=== PATIENT | female | born 1935 | race Caucasian/White ===

== ENCOUNTER 2017-02-17 13:14 | Outpatient (CLI) | payer MEDICARE, BC | END 2017-02-17 13:15 | disposition home or self-care (01) | LOC: BICRAD 13:14 | PROVIDERS: ATTEND Internal Medicine | DX: R07.9 Chest pain, unspecified (principal); I70.0 Atherosclerosis of aorta; I77.819 Aortic ectasia, unspecified site; Z90.11 Acquired absence of right breast and nipple | CPT/HCPCS: 36415; 71020; 80048 ==

== ENCOUNTER 2017-05-26 10:54 | Outpatient (CLI) | payer MEDICARE, BC | END 2017-05-26 10:55 | disposition home or self-care (01) | LOC: BICMAMMO 10:54 | PROVIDERS: ATTEND Internal Medicine | DX: Z12.31 Encounter for screening mammogram for malignant neoplasm of breast; Z85.3 Personal history of malignant neoplasm of breast | CPT/HCPCS: 77063; 77067 ==

== ENCOUNTER 2017-06-14 17:39 | Observation (INO) | payer MEDICARE, BC ==
[2017-06-14 19:11] LABS: #Eosinphils 0.1 thou/uL (0.0-0.7); #Lymphocytes 1.1 thou/uL (1.20-3.40); #Monocytes 0.8 thou/uL (0.11-0.59); #Neutrophils 6.1 thou/uL (1.40-6.50); %Basophils 0.1 % (0.0-1.0); %Eosinophils 1.2 % (0.0-10.0); %Lymphocytes 13.6 % (21.0-51.0); %Monocytes 9.6 % (0.0-10.0); %Neutrophils 75.4 % (42.0-75.0); Hemoglobin 12.9 g/dL (12.0-16.0); Mean Corpuscular HGB CONC 32.9 g/dL (32.0-36.0); Mean Corpuscular Hemoglobin 31.7 pg (27.0-31.0); Mean Corpuscular Volume 96.5 fl (81.0-99.0); Mean Platelet Volume 7.5 fL (7.4-10.4); Platelet Count 177 thou/uL (130-400); RBC Distribution Width 11.9 % (11.5-14.5); Red Blood Cell (RBC) Count 4.08 mill/uL (4.20-5.40)
[2017-06-14 19:34] LABS: ALT (SGPT) 8 U/L (8-55); AST (SGOT) 13 U/L (5-34); Albumin 3.5 g/dL (3.4-4.8); Alkaline Phosphatase 85 U/L (40-150); Anion Gap 13 mmol/L (10-20); BUN (Urea Nitrogen) 17 mg/dL (9.8-20.1); Bilirubin, Total 0.5 mg/dL (0.2-1.2); Calc. Creatinine Clearance 0 mL/min (70-130); Calcium 8.5 mg/dL (7.8-10.44); Carbon Dioxide 25 mmol/L (23-31); Chloride 100 mmol/L (98-107); Estimated GFR-MDRD 45; Globulin 2.6 g/dL (2.4-3.5); Glucose 93 mg/dL (83-110); Lipase 26 U/L (8-78); Potassium 4.2 mmol/L (3.5-5.1); Protein, Total 6.1 g/dL (6.0-8.3); Sodium 134 mmol/L (136-145)
[2017-06-14 21:09] LABS: Bilirubin Negative (Negative); Blood, Urine Negative (Negative); Clarity CLEAR (Clear); Glucose, Urine (Dipstick) Negative (Negative); Leukocyte Trace (Negative); Nitrite Negative (Negative); Protein, Urine (Dipstick) Negative (Neg-Trace); Specific Gravity, Urine 1.006 (1.002-1.036); Urobilinogen 0.2 mg/dL (0.2-1.0); pH, Urine 5.5 (5.0-9.0)
[2017-06-14 21:22] LABS: RBC/HPF 0-3 HPF (0-3); Squamous Epithelial 0-3 HPF (0-3); WBC/HPF 0-3 HPF (0-3)
[2017-06-14 21:23] LABS: Bacteria/HPF None Seen HPF (None Seen); Hyaline Casts/LPF NONE SEEN LPF (0-3 Hyaline)
[2017-06-14] MEDS ORDERED: Ondansetron HCl/PF 4 MG/2 ML Vial IVP PRN (21:27)
[2017-06-14] MEDS ORDERED: Ondansetron ODT 4 MG TAB SL PRN (21:27)
[2017-06-14 21:50] VITALS: BMI 17.6
[2017-06-15] MEDS ORDERED: Ondansetron ODT 4 MG TAB PO PRN (04:15)
[2017-06-15] MEDS ORDERED: Ondansetron HCl/PF 4 MG/2 ML Vial IVP PRN (04:15)
[2017-06-15] MEDS ORDERED: hydrALAZINE 20 MG/ML VIAL SLOW IVP PRN (04:16)
--- NOTE | 2017-06-15 04:59 | HP ---
PRIMARY CARE PHYSICIAN: Dr. April Humphreys. CHIEF COMPLAINT: Diarrhea. HISTORY OF PRESENT ILLNESS: Ms. Escobar is a pleasant 81-year-old female who has a history of hyperte nsion, elevated cholesterol, and breast cancer. She also has a history of irritable bowel syndrome w ith diarrhea. She was in her usual state of health until this past Tuesday. She says that around midnight, she began having severe watery diarrhea. She says that it was really dark and black colore d as well. She says this going on all night long. She denied having any abdominal pain, however, an d also denied any nausea or vomiting. No fever or chills, but she says that on Tuesday, it seemed t o slow down. She says that she has a tendency to have diarrhea anyway, so she tried eating a BRAT di et and says that it started to slow up some; then on Tuesday, it started to clear up. Then the , she said she ate a chicken pot pie and says that it started all over again. This is the r eamon that she came to the ER for evaluation. The patient says it seems as if diarrhea does, is not really related to eating, but it does seem to get worse after eating by her description. She also sa ys that she has tried taking FiberCon, vitamin C, Imodium, and other ldui-caj-hditelk medications wit hout much relief; however, since she has been in the hospital, in the emergency room and on the floor , her diarrhea has slowed significantly and it is noted that she is currently n.p.o. REVIEW OF SYSTEMS: Constitutional: No fevers, chills, no night sweats, no weight loss. HEENT: No headaches, no dizziness, no visual changes, no sore throat, rhinorrhea, neck pain, no adenopathy. Pu lmonary: No hemoptysis, no cough, no wheezing. Cardiovascular: She denies any chest pain, no short ness of breath, no PND, no orthopnea. Gastrointestinal: As the history of present illness. Genitou rinary: No urinary frequency, hematuria, no hesitancy. Neurologic: No focal weakness, numbness, no seizures. Psychiatric: No symptoms of anxiety or depression. Skin and Integument: No skin change s. No rash. PAST MEDICAL HISTORY: Hypertension, hypercholesterolemia, breast cancer which was estrogen and proge sterone receptor positive and a T2 N1 M0, stage 2 basal cell carcinoma, irritable bowel syndrome with diarrhea, diverticulosis and what sounds like a thyroglossal cyst. PAST SURGICAL HISTORY: She has had a right mastectomy and reconstructive saline implant, knee surger y, total abdominal hysterectomy and bilateral salpingo-oophorectomy, left wrist surgery, right rotato r cuff tear surgery, , bilateral cataract surgery, appendectomy, 3 foot surgeries as well as a throat surgery. ALLERGIES: No known drug allergies. SOCIAL HISTORY: She is . She is a nonsmoker, nondrinker. FAMILY HISTORY: Significant for Parkinson disease, coronary artery disease, breast cancer, these are in her mother. Her father had coronary artery disease and a sister had multiple myeloma. CURRENT MEDICATIONS: Include Xanax 0.25 mg q.8, aspirin 325 mg daily, Plavix 75 mg daily, digoxin 0. 125 mg daily, Nexium 40 mg daily, estradiol vaginal cream, Flonase nasal spray twice a day, Lasix 40 mg daily, Osteo Bi-Flex once a day, glucosamine daily, isosorbide mononitrate 60 mg extended release daily, Toprol-XL 100 mg daily, Nitrostat 0.4 sublingual p.r.n., Systane eyedrops, simvastatin 20 mg a t bedtime, valsartan 40 mg twice a day, Catapres patch 0.3 q.7 days, hydralazine 50 at bedtime, and v alacyclovir 500 mg daily. PHYSICAL EXAMINATION: GENERAL: She is alert and oriented. She appears to be in no acute distress. VITAL SIGNS: Blood pressure was 120/54, heart rate 73, respiratory rate of 18, temperature is 97.9. HEENT: Her pupils are equal, round, and reactive. Extraocular muscles are intact. Her sclerae are anicteric. Throat: No erythema, no exudates. NECK: No adenopathy, no bruits. LUNGS: Clear. No wheezing, no rales. CARDIOVASCULAR: She has a normal S1, S2. There is no S3 or S4. No murmurs, clicks, or rubs. ABDOMEN: Soft, it is nontender, nondistended. Positive for bowel sounds. No rebound, no guarding. EXTREMITIES: There is no edema. NEUROLOGICALLY: The exam is nonfocal. She is moving all extremities. Muscle strength is 5/5 in bot h upper and lower extremities. LABORATORY RESULTS: White blood cell count 8.0, hemoglobin 12.9, hematocrit 39.4, platelet count 177 ,000. Sodium 134, potassium 4.2, chloride is 100, CO2 is 25, BUN of 17, creatinine 1.15, glucose is 93. ASSESSMENT AND PLAN: This is an 81-year-old female who has a history of chronic diarrhea off and on attributable to irritable bowel syndrome, but has had an increase in the volume and amount of diarrhe a just recently. She will be placed in observation. We will leave her n.p.o. and start her on IV fl uids. Get stool studies including Clostridium difficile and stool for ova and parasites as well as a lactoferrin and consult GI for further recommendations. Hypertensions and the patient will be n.p.o . We will place her on p.r.n. medications as needed. Since there is some question of bleeding and d ark stools and guaiac positive stools. We will hold off on Lovenox for DVT prophylaxis and place her on SCDs only and we will also place her on a proton-pump inhibitor.
[2017-06-15] MEDS: Sodium Chloride 0.9% 1,000 ML IV SCH ×2 (05:11→16:12)
[2017-06-15] MEDS: Pantoprazole 40 MG VIAL IVP SCH (09:03)
[2017-06-15] MEDS ORDERED: Dextrose 50% Abboject 50 ML SYRINGE ONE (11:31)
[2017-06-15 12:39] LABS: Hemoglobin 12.4 g/dL (12.0-16.0)
[2017-06-15 12:59] LABS: Glucose Accucheck Confirmation 187 mg/dl (83-110)
[2017-06-15 16:43] LABS: Magnesium 1.6 mg/dL (1.6-2.6); Phosphorus 3.2 mg/dL (2.3-4.7)
[2017-06-15] MEDS ORDERED: GoLYTELY 4,000 ml Bottle PO SCH (17:00)
--- NOTE | 2017-06-15 20:57 | CON ---
DATE OF CONSULTATION: 06/15/2017 REASON FOR CONSULTATION: Ms. Escobar is an 81-year-old female who was admitted to the hospital for re current episodes of diarrhea, heme-positive stool. HISTORY OF PRESENT ILLNESS: Ms. Escobar is a pleasant 81-year-old who recently went to the emergency room on the and then again on the . She went in she states because she has had diarrhea sta rting last week on , which is about 6 days, it was very watery and dark in color. She has be en trying fiber, Kaopectate, and Imodium. She had some problems with IBS in the past. She was not i mproving, went to the emergency room in [place], because she was having some vision problems and was very sedate. That improved, and in the emergency room in [place], she was given fluids and she lissy t home and had further diarrhea. Ultimately, she went and saw her PCP and then actually came back to the emergency room here at [place]. The decision was made to get her admitted to the hospital. The patient notes she would go up to 10 times a day, it was watery and black colored. She had no vom iting, cramping, fever, or chills. She denied eating anything out of the ordinary. Denied recent an tibiotics. Denied any sick contacts. She has had problems with diarrhea in the past, and was told s he had irritable bowel. At one point in time, she was on Benicar and this was stopped. It was felt it was possibly the cause of diarrhea. Presently, she has had no diarrhea since admission, but had s tool x2 Hemoccult positive. PAST MEDICAL HISTORY: Hypertension, hyperlipidemia, breast cancer, stage II basal carcinoma, IBS, di verticulosis, thyroglossal cyst in the past. PAST SURGICAL HISTORY: Mastectomy reconstructive with saline implant, knee surgery, total abdominal hysterectomy, bilateral salpingo-oophorectomy, right rotator cuff repair, . She has had EGD and colonoscopy for diarrhea back in 2006. She had no polyps removed. Random biopsies of the colon were normal. It does not seem that biopsies were taken for celiac at that time. There was some not ation in the chart that celiac blood testing was done and that was negative, but I could not find david t. SOCIAL HISTORY: She is . Her is at bedside, as is her granddaughter and daughter-in- law. FAMILY HISTORY: Negative for diarrhea or bowel disease. MEDICATIONS AT HOME: Xanax, aspirin, Plavix, digoxin, Nexium, estradiol, Flonase, Osteo Bi-Flex, iso sorbide mononitrate, Toprol, Nitrostat, Singulair, losartan, Catapres, hydrochlorothiazide, valacyclo vir. PRESENT MEDICATIONS: Zofran p.r.n., Protonix, normal saline at 100, and Apresoline. PHYSICAL EXAMINATION: GENERAL: She is resting comfortably in bed. She is thin and frail, but awake, oriented, and bright. VITAL SIGNS: Temperature is 97, pulse 65, blood pressure 119/56. HEENT: Oropharynx is without lesions, is moist. LUNGS: Clear. HEART: Regular rate and rhythm without clicks or murmurs. ABDOMEN: Soft and nontender without rebound or guarding. RECTAL: Reveals some pretty much empty vault, but little bit of formed stool. There was brown stool though. There was no black stool or melena. LABORATORY STUDIES: Hemoglobin was 14 on admission, 12.4 now. White count was 5.8, it is [address] atelet counts 117. INR is 1. Comprehensive metabolic profile was normal. BUN and creatinine 19 and 1.77, now 17 and 1.15. Magnesium was not checked. Phosphorus was not checked. Liver function test is normal. Albumin normal. TSH normal. Digoxin is 0.66. Microbiology: Stool occult blood positi ve x2. Pending stool includes Campylobacter, C. difficile, lactoferrin, ova and parasite. She is on H&Hs q.6 hours. ASSESSMENT: 1. Heme-positive stool. There does not appear to be any acute gastrointestinal bleeding. She has b rown stool on rectal examination. It may be that there was heme-positive related to whatever cause o f diarrhea she had or she has got some type of gastritis, but at this point, I think we can stop the q.6 hour H&H's. 2. Diarrheal illness. It is not unusual for her to have diarrhea. She has been diagnosed with klever huerta with prominent irritable bowel syndrome many years ago. Interestingly, she had a decrease in sy mptoms with Benicar and Benicar has been associated with celiac-like syndromes. Her family notes david t she did better for some time when off that, but then this occurred. She estimates she has been off for about 2 months. Differential diagnosis for the diarrhea recently would include ischemia, but ernestine henning had no cramps, pain, or tenesmus; gastrointestinal bleed from an ulcer or other source; inflammator y diarrhea; may be that she just had a little bit of blood in her stool with diarrhea and hemorrhoids and perianal irritation. She was not going to real big drop in the hemoglobin and most of the drop in hemoglobin is probably attributable to hydration. PLAN: 1. Obtain stool studies. 2. Stop q.6 hour H&H. 3. EGD and colonoscopy tomorrow. She will need a biopsy of small bowel to rule out celiac.
[2017-06-15] MEDS: Dextrose 5 % And 0.9 % NaCl 1,000 ML IV SCH (22:35)
[2017-06-16 05:05] LABS: #Eosinphils 0.1 thou/uL (0.0-0.7); #Lymphocytes 1.1 thou/uL (1.20-3.40); #Monocytes 0.7 thou/uL (0.11-0.59); #Neutrophils 3.9 thou/uL (1.40-6.50); %Basophils 0.4 % (0.0-1.0); %Eosinophils 2.4 % (0.0-10.0); %Monocytes 12.5 % (0.0-10.0); %Neutrophils 65.7 % (42.0-75.0); Hemoglobin 11.5 g/dL (12.0-16.0); Mean Corpuscular HGB CONC 33.4 g/dL (32.0-36.0); Mean Corpuscular Hemoglobin 31.9 pg (27.0-31.0); Mean Corpuscular Volume 95.5 fl (81.0-99.0); Mean Platelet Volume 7.7 fL (7.4-10.4); Platelet Count 173 thou/uL (130-400); RBC Distribution Width 11.8 % (11.5-14.5); Red Blood Cell (RBC) Count 3.59 mill/uL (4.20-5.40)
[2017-06-16 05:36] LABS: Anion Gap 9 mmol/L (10-20); BUN (Urea Nitrogen) 7 mg/dL (9.8-20.1); Calc. Creatinine Clearance 51 mL/min (70-130); Carbon Dioxide 24 mmol/L (23-31); Chloride 111 mmol/L (98-107); Estimated GFR-MDRD 84; Glucose 108 mg/dL (83-110); Potassium 3.3 mmol/L (3.5-5.1); Sodium 141 mmol/L (136-145)
[2017-06-16] MEDS: Dextrose 5 % And 0.9 % NaCl 1,000 ML IV SCH ×2 (08:36→22:37)
[2017-06-16] MEDS: Pantoprazole 40 MG VIAL IVP SCH (08:36)
[2017-06-16] MEDS ORDERED: Lidocaine 1% PF 5 ML VIAL ONE (12:49)
[2017-06-16] MEDS ORDERED: PROPOFOL 200 MG/20 ML VIAL ONE (12:49)
[2017-06-16] MEDS ORDERED: Promethazine HCl 25 MG/ML VIAL IM PRN (16:09)
[2017-06-16] MEDS ORDERED: Promethazine HCl 25 MG/ML VIAL SLOW IVP PRN (16:09)
[2017-06-16] MEDS ORDERED: Ondansetron HCl/PF 4 MG/2 ML Vial IVP PRN (16:09)
[2017-06-16] MEDS ORDERED: Meperidine HCl/PF 25 MG/ML VIAL SLOW IVP PRN (16:09)
--- NOTE | 2017-06-16 18:02 | OP ---
DATE OF PROCEDURE: 06/16/2017 PROCEDURE: EGD with biopsy, colonoscopy with biopsy. INDICATION FOR PROCEDURE: Melena, diarrhea. DESCRIPTION OF PROCEDURES: After the risks and benefits of the procedures were explained to the patricia ent including risk of bleeding, infection, perforation, reaction to anesthesia and/or pain, informed consent was obtained. The patient was then taken to the endoscopy suite where deep sedation was admi nistered via propofol and anesthesia support. The standard gastroscope was then introduced into the mouth with intubation of the esophagus, stomach and the proximal small intestine with the findings li sted below. She tolerated the upper endoscopy well with no immediate perioperative complications. A fter the upper endoscopy was completed, the bed was rotated to 180 degrees with initiation of the col onoscopy portion of the exam. After a digital rectal examination, the standard colonoscope was intro duced into the rectum and advanced to the terminal ileum. Examination of the mucosa was performed up on slow withdrawal. The quality of the prep was fair, but converted to a good prep with aggressive i rrigation and suctioning. The patient tolerated the procedure well with no immediate perioperative c omplications. EGD FINDINGS: 1. Esophagus: Normal appearing mucosa was seen in the proximal, mid and distal esophagus, there was no evidence of erosions, ulcerations, mass lesions or active/recent bleeding. 2. Stomach: Normal appearing mucosa was seen in the gastric cardia, fundus, body, antrum and incisu ra. There was no evidence of erosions, ulcerations, mass, lesions or active/recent bleeding. 3. Duodenum: Normal appearing mucosa was seen in both the duodenal bulb and second portion of the d uodenum. There was no evidence of erosions, ulcerations, mass lesions or active/recent bleeding. Bl ack bile was seen emanating from the ampulla during this examination. Random biopsies were taken fro m the small bowel for evaluation of celiac disease. IMPRESSION: 1. Normal upper endoscopy. 2. No etiology for melena seen during this examination. RECOMMENDATIONS: Proceed to colonoscopy. COLONOSCOPY FINDINGS: Digital rectal examination: Small external hemorrhoids were noted on external examination along with small perianal skin tags. COLON FINDINGS: Normal appearing mucosa was seen in the terminal ileum, ileocecal valve, appendiceal orifice and cecum. Normal appearing mucosa was also seen in the ascending, transverse, and descendi ng colons. Multiple medium to large mouth diverticula were seen in the distal descending and sigmoid colons. There was no associated bleeding or stenoses with this diverticulosis. Normal appearing mu cosa was then seen in the rectum. Normal mucosa was also seen on rectal retroflexion. IMPRESSION: 1. Moderate to severe left-sided diverticulosis. 2. No etiology for melena was seen during this examination. RECOMMENDATIONS: 1. Follow up with primary inpatient team. 2. We would continue to trend H&H and transfuse as necessary to maintain an H&H of 7/. 3. Continue proton-pump inhibitor daily for reflux purposes. 4. We will follow up on biopsy results. 5. At this point, the most likely explanation for her darker colored watery stools would be her clock and watch hands dipper enzo diarrhea coupled with dark bile seen during this examination. We will continue to follow. Please call with any questions.
--- NOTE | 2017-06-16 21:41 | PDOC.PN ---
- Subjective Encounter Start Date: 06/16/17 Encounter Start Time: 21:39 Subjective: nsg notes rev, madonna ovn, no new issues, bret egd colo - Objective Resuscitation Status: Resuscitation Status FULL:Full Resuscitation Vital Signs & Weight: Vital Signs (12 hours) Temp Pulse Resp BP Pulse Ox 06/16/17 18:40 98.1 F 69 12 140/67 94 L 06/16/17 16:35 97.8 F 65 16 133/62 95 06/16/17 11:20 98.9 F 58 L 16 164/80 H 92 L Weight Admit Weight 107 lb 6.4 oz Weight 107 lb 6.4 oz I&O: 06/15/17 06/16/17 06/17/17 06:59 06:59 06:59 Intake Total 1240 4605 1452 Output Total 600 Balance 640 4605 1452 Result Diagrams: 06/16/17 04:21 06/16/17 04:21 Additional Labs: Accuchecks 06/16/17 06/16/17 06/16/17 20:08 16:52 13:15 POC Glucose 130 H 102 106 06/16/17 06/15/17 09:10 23:31 POC Glucose 106 122 H Dx/Plan - Plan * diarrhea * hx ibs * apprec gi c/s * underwent egd/ colo today * resolved, d/c ivf if bret po concern for melena * hemodynamically stable * stable h/h * no evid of active bleeding diet: as bret activity: as bret dvt ppx sq
[2017-06-17] MEDS ORDERED: Acetaminophen 500 MG TAB PO PRN (06:30)
[2017-06-17] MEDS: Pantoprazole 40 MG VIAL IVP SCH (09:07)
[2017-06-17] MEDS: Dextrose 5 % And 0.9 % NaCl 1,000 ML IV SCH ×2 (09:07→11:59)
[2017-06-17 12:17] VITALS: BP 141/87; TEMP 97.9
== END 2017-06-17 15:25 | disposition home or self-care (01) ==
LOC: ERS 17:39 → 2SW 20:09
PROVIDERS: ADMIT Family Medicine; ATTEND Family Medicine
PROC: 0DBP8ZX Excision of Rectum, Via Natural or Artificial Opening Endoscopic, Diagnostic (ICD-10-PCS; principal; 2017-06-14)
PROC: 0DB98ZX Excision of Duodenum, Via Natural or Artificial Opening Endoscopic, Diagnostic (ICD-10-PCS; 2017-06-14)
DX: K92.1 Melena (principal); R19.7 Diarrhea, unspecified; K31.89 Other diseases of stomach and duodenum; K57.30 Diverticulosis of large intestine without perforation or abscess without bleeding; K64.4 Residual hemorrhoidal skin tags; I10 Essential (primary) hypertension; E78.5 Hyperlipidemia, unspecified; Z79.82 Long term (current) use of aspirin; Z79.899 Other long term (current) drug therapy; Z98.890 Other specified postprocedural states; Z85.3 Personal history of malignant neoplasm of breast
CPT/HCPCS: 43239; 45380; 80048; 80053; 82274; 82947; 82962 ×3; 83630; 83690; 83735; 84100; 85014; 85018; 85025 ×2; 86850; 86900; 86901; 87324; 87328; 87329; 87449 ×2; 88305; 96361 ×4; 96374; 96376 ×2; 97139 ×3; 99285; G0378 ×2; 36415; 36416; 81003; 81015; 96360; C9113; J2001; J2704

== ENCOUNTER 2017-12-19 09:26 | Outpatient (CLI) | payer MEDICARE, BC ==
[2017-12-19 12:07] LABS: #Basophils 0.1 thou/uL (0.0-0.2); #Eosinphils 0.2 thou/uL (0.0-0.7); #Lymphocytes 1.2 thou/uL (1.20-3.40); #Monocytes 0.7 thou/uL (0.11-0.59); #Neutrophils 4.7 thou/uL (1.40-6.50); %Basophils 0.8 % (0.0-1.0); %Eosinophils 2.8 % (0.0-10.0); %Lymphocytes 17.7 % (21.0-51.0); %Monocytes 9.7 % (0.0-10.0); %Neutrophils 69.1 % (42.0-75.0); Hemoglobin 13.7 g/dL (12.0-16.0); Mean Corpuscular Volume 96.8 fL (78.0-98.0); Mean Platelet Volume 8.2 fL (7.4-10.4); Platelet Count 224 thou/uL (130-400); RBC Distribution Width 12.3 % (11.5-14.5); Red Blood Cell (RBC) Count 4.55 mill/uL (4.20-5.40); White Blood Cell (WBC) Count 6.8 thou/uL (4.8-10.8)
[2017-12-19 12:31] LABS: ALT (SGPT) 11 U/L (8-55); AST (SGOT) 15 U/L (5-34); Alkaline Phosphatase 84 U/L (40-150); Anion Gap 10 mmol/L (10-20); BUN (Urea Nitrogen) 15 mg/dL (9.8-20.1); Bilirubin, Total 0.4 mg/dL (0.2-1.2); Calc. Creatinine Clearance 0 mL/min (70-130); Calcium 9.1 mg/dL (7.8-10.44); Carbon Dioxide 31 mmol/L (23-31); Chloride 105 mmol/L (98-107); Estimated GFR-MDRD 72; Globulin 2.8 g/dL (2.4-3.5); Glucose 85 mg/dL (83-110); Potassium 3.9 mmol/L (3.5-5.1); Protein, Total 6.8 g/dL (6.0-8.3); Sodium 142 mmol/L (136-145)
== END 2017-12-19 09:27 | disposition home or self-care (01) ==
LOC: LABBT 09:26
PROVIDERS: ATTEND Surgery
DX: Z01.812 Encounter for preprocedural laboratory examination (principal); R59.0 Localized enlarged lymph nodes
CPT/HCPCS: 80053; 85025

== ENCOUNTER 2017-12-21 06:58 | Day surgery (SDC) | payer MEDICARE, BC ==
[2017-12-19 09:52] VITALS: BMI 17.2
[2017-12-21] MEDS ORDERED: CEFAZOLIN 2 GM/50 ML BAG ONE (09:03)
[2017-12-21] MEDS ORDERED: Bupivacaine HCl 0.5%/Epinephrine 1:200,000/PF 30 ml Vial ONE (09:14)
[2017-12-21] MEDS ORDERED: Lidocaine 2% PF 5 ML VIAL ONE (09:14)
[2017-12-21] MEDS ORDERED: Fentanyl 100 MCG/2 ML VIAL ONE (09:25)
--- NOTE | 2017-12-21 11:52 | OP ---
PREOPERATIVE DIAGNOSIS: Right chest wall mass/lymph node. SURGEON: Alban Silverio M.D. PROCEDURE PERFORMED: Right chest wall biopsy. INDICATIONS: This is an 82-year-old female who had previous breast cancer and reconstruction who dev eloped a nodule in the right axilla that just lateral to the implant and inferior to the axilla. The re was somewhat suspicious on palpation. FINDINGS: The mass was smaller than it had been previously. Once a local anesthesia was injected, a n incision made very difficult to find. I excised the area. It may have been a cyst that ruptured. It may have been scar tissue, but once the subcutaneous tissue was removed, it was no longer able to be found. PROCEDURE: After informed consent was obtained, the patient was taken to the operating room, given t otal intravenous anesthesia, placed in the supine position and her chest wall was prepped and draped in usual fashion. Local anesthesia infiltrated subcutaneously and deep. A transverse incision perfo rmed over the mass. The subcu divided sharply. The mass was somewhat mobile; however, I grasped it w ith an Allis clamp and excised this tissue and once it was excised, it really just felt like fat. I milked circumferentially both internally and externally and could not find any masses after doing thi s. So, the piece I removed, I sent for pathology. I really did not feel any lymph nodes or see any lymph nodes and the mass was completely gone once I had made the incision. So, presumably it was eit her some scar tissue that had balled up or a cyst that ruptured, but it does appear to be benign. He mostasis was achieved utilizing electrocautery. Subcutaneous reapproximated with interrupted 3-0 Holden ryl. Skin closed with a running subcuticular 4-0 Rapide. Steri-Strips applied. Sterile bandage [place] lied. The patient tolerated the procedure well and was transferred to recovery in good condition. S ponge and needle count verified correct x2.
--- NOTE | 2017-12-21 15:48 | EKG ---
Test Reason : PREOP Blood Pressure : / mmHG Vent. Rate : 050 BPM Atrial Rate : 050 BPM P-R Int : 194 ms QRS Dur : 092 ms QT Int : 438 ms P-R-T Axes : 071 055 076 degrees QTc Int : 399 ms Sinus bradycardia Possible Left atrial enlargement Left ventricular hypertrophy with repolarization abnormality Abnormal ECG Confirmed by TONE HERNÁNDEZ ([id number]) on 12/21/2017 3:48:32 PM Referred By: TATIANA Confirmed By:TONE HERNÁNDEZ
[2017-12-21] MEDS ORDERED: PROPOFOL 200 MG/20 ML VIAL ONE (17:22)
[2017-12-21] MEDS ORDERED: Lidocaine 1% PF 5 ML VIAL ONE (17:22)
== END 2017-12-21 11:42 | disposition home or self-care (01) ==
LOC: SDC 06:58
PROVIDERS: ATTEND Surgery
PROC: 0JB60ZX Excision of Chest Subcutaneous Tissue and Fascia, Open Approach, Diagnostic (ICD-10-PCS; principal; 2017-12-21)
PROC: 0JB60ZX Excision of Chest Subcutaneous Tissue and Fascia, Open Approach, Diagnostic (ICD-10-PCS; 2017-12-21)
DX: R59.1 Generalized enlarged lymph nodes (principal); Z88.8 Allergy status to other drugs, medicaments and biological substances; Z79.899 Other long term (current) drug therapy
CPT/HCPCS: 88305; 93005; 93010; J0670; J2001; J2704; J3010

== ENCOUNTER 2018-03-22 15:54 | Outpatient (CLI) | payer MEDICARE, BC ==
--- NOTE | 2018-03-22 16:48 | RAD ---
CHEST 2 VIEWS: Date: 03/22/18 HISTORY: Dyspnea. COMPARISON: 12/31/04. FINDINGS: Cardiac silhouette is predominantly obscured by bilateral pleural fluid and patchy bibasilar infiltra juaquin. Pulmonary vasculature engorged with widespread reticulonodular interstitial prominence and bilat eral perihilar infiltrates. Mediastinum is midline with aortic calcification. No evidence of pneumoth orax. Postoperative changes right shoulder. Metallic clips over the right axilla. IMPRESSION: Pulmonary vascular congestion and bilateral pleural fluid, likely related to CHF. POS: BRENDAN
== END 2018-03-22 15:55 | disposition home or self-care (01) ==
LOC: BICRAD 15:54
PROVIDERS: ATTEND Internal Medicine
DX: R06.00 Dyspnea, unspecified (principal); R05 Cough; R09.89 Other specified symptoms and signs involving the circulatory and respiratory systems; R07.9 Chest pain, unspecified; I50.9 Heart failure, unspecified
CPT/HCPCS: 36415; 71046; 80053; 83880; 85007; 85027; 85379

== ENCOUNTER 2018-03-23 09:07 | Outpatient (CLI) | payer MEDICARE, BC ==
[2018-03-23] MEDS ORDERED: Iopamidol 370 76% 100 ML VIAL ONE (09:37)
--- NOTE | 2018-03-23 10:16 | CT ---
CT ANGIO OF CHEST PERFORMED WITH INTRAVENOUS CONTRAST ENHANCEMENT WITH 3D RECONSTRUCTIONS: History: Shortness of breath, chest pain since last month. History of right breast cancer and right m astectomy. FINDINGS: There are moderate bilateral pleural effusions. The right is slightly larger than the left. There is bibasilar atelectasis versus infiltrate associated with this. There is also some parenchymal change i n the right middle lobe. Within the left upper lobe there are two tiny pleural or subpleural nodules seen on axial image 59. These measure in the 3-4 and approximately 5 mm range respectively. There is no significant mediastinal or hilar lymphadenopathy noted. The ascending thoracic aorta sheron ures approximately 4 cm. The main pulmonary artery is prominent measuring in the 3.4 cm range. There is good pulmonary artery opacification obtained for this exam, there is no CT evidence for pulmonary embolus. Post op right mastectomy changes are present with a right breast implant. IMPRESSION: 1. Moderately large bilateral pleural effusions, right larger than left, with bibasilar lung changes appearing more on the basis of atelectasis than infiltrate. There is also some parenchymal change in the right middle lobe with some air bronchograms and some elements of an infiltrative process is diff icult to exclude. 3. 4 cm AP dimension of the ascending aorta. The main pulmonary artery is also mildly prominent measu ring in the 3.4 cm range[address] 4. No CT evidence for pulmonary embolus. POS: TPC
== END 2018-03-23 09:08 | disposition home or self-care (01) ==
LOC: CT 09:07
PROVIDERS: ATTEND Internal Medicine
DX: R06.09 Other forms of dyspnea (principal); R05 Cough; R07.9 Chest pain, unspecified; J90 Pleural effusion, not elsewhere classified; J98.11 Atelectasis
CPT/HCPCS: 71275; Q9967

== ENCOUNTER 2018-03-23 13:12 | Outpatient (CLI) | payer MEDICARE, BC ==
--- NOTE | 2018-03-23 13:38 | RAD ---
LEFT KNEE FOUR VIEWS: History: Knee pain. FINDINGS: The total knee prosthesis appears to be in good position. There are no signs of fracture or loosening . IMPRESSION: No acute findings. POS: TPC
== END 2018-03-23 13:13 | disposition home or self-care (01) ==
LOC: BICRAD 13:12
PROVIDERS: ATTEND Internal Medicine
DX: M25.562 Pain in left knee (principal)
CPT/HCPCS: 71275

== ENCOUNTER 2018-05-29 10:41 | Outpatient (CLI) | payer MEDICARE, BC ==
--- NOTE | 2018-05-29 13:15 | MMO ---
Bilateral MAMMO Bilat Screen [facility]. CLINICAL HISTORY: Patient is 82 years old and is seen for screening. The patient has the following family history of breast cancer: mother, at age 55. The patient has a history of right Mastectomy at age 60. VIEWS: The views performed were: bilateral craniocaudal with tomosynthesis and bilateral mediolateral oblique with tomosynthesis. FILMS COMPARED: The present examination has been compared to prior imaging studies performed at on 11/13/2007, 12/02/2008, 12/15/2009, 12/16/2010, 09/02/2011, 01/17/2012, 01/17/2013, 01/21/2014, 03/04/2015, 03/25/2016 and 05/26/2017. MAMMOGRAM FINDINGS: There are stable benign appearing calcifications seen in the left breast. There are no suspicious masses, suspicious calcifications, or new areas of architectural distortion. IMPRESSION: THERE IS NO MAMMOGRAPHIC EVIDENCE OF MALIGNANCY. A ROUTINE FOLLOW-UP MAMMOGRAM IN 1 YEAR IS RECOMMENDED. THE RESULTS OF THIS EXAM WERE SENT TO THE PATIENT. ACR BI-RADS Category 2 - Benign finding MAMMOGRAPHY NOTE: 1. A negative mammogram report should not delay a biopsy if a dominant of clinically suspicious mass is present. 2. Approximately 10% to 15% of breast cancers are not detected by mammography. 3. Adenosis and dense breasts may obscure an underlying neoplasm.
== END 2018-05-29 10:42 | disposition home or self-care (01) ==
LOC: BICMAMMO 10:41
PROVIDERS: ATTEND Internal Medicine
DX: Z12.31 Encounter for screening mammogram for malignant neoplasm of breast (principal); Z80.3 Family history of malignant neoplasm of breast; Z90.11 Acquired absence of right breast and nipple
CPT/HCPCS: 77063; 77067

== ENCOUNTER 2018-06-28 13:52 | Outpatient (CLI) | payer MEDICARE, BC ==
--- NOTE | 2018-06-28 14:49 | RAD ---
CHEST TWO VIEWS: INDICATIONS: Cough. COMPARISON: 03/22/2018 FINDINGS: Evidence of a right breast prosthesis. The lungs appear clear and well aerated. No infiltrate or va scular congestion. The heart is mildly enlarged but stable. Osseous structures are unremarkable. IMPRESSION: No acute lung process. POS: C
== END 2018-06-28 13:53 | disposition home or self-care (01) ==
LOC: BICRAD 13:52
PROVIDERS: ATTEND Internal Medicine
DX: R05 Cough (principal)
CPT/HCPCS: 71046

== ENCOUNTER 2018-09-07 11:32 | Outpatient (CLI) | payer MEDICARE, BC ==
--- NOTE | 2018-09-07 17:19 | PET ---
PET CT: 09/07/18 HISTORY: Left lower lobe lung mass. Right breast cancer with right mastectomy. Solitary lung nodule. TECHNIQUE: PET scan with CT attenuation correction was performed from the base of the brain to the proximal thig hs following the intravenous administration of 12 millicuries of F18 fluorodeoxyglucose. COMPARISON: None. FINDINGS: There is hypermetabolic activity in a left lower lobe lung mass with an SUV of 5.9. There are two nod ules in the anterior aspect of the right middle lobe with an SUV of 2.1 in the lateral nodule and SUV Of 2.9 in the medial nodule. No dc hypermetabolism is seen in the left chest, axillae, abdomen or pelvis. No hypermetabolic liver or adrenal lesions are seen. There are foci of increased uptake in the healing fractures of the posterior aspects of the left 9th and 10th ribs with an SUV of 3. No other abnormal areas of tracer localization is seen in the skeleto n to suggest osseous metastatic disease. There is physiologic activity in the GI and tracts, heart and the visualized portions of the brain . The CT scan used for attenuation correction demonstrates no evidence of pleural effusions or ascites. There is colonic diverticulosis. IMPRESSION: Hypermetabolic lung nodules are suspicious for malignancy/metastatic disease. POS: BRENDAN
== END 2018-09-07 11:33 | disposition home or self-care (01) ==
LOC: PET 11:32
PROVIDERS: ATTEND Internal Medicine Critical Care Medicine
DX: R91.8 Other nonspecific abnormal finding of lung field (principal)
CPT/HCPCS: 78815; A9552

== ENCOUNTER 2018-09-22 08:27 | Day surgery (SDC) | payer MEDICARE, BC ==
[2018-09-21 13:31] VITALS: BMI 16.9
[2018-09-22 08:38] LABS: #Basophils 0.1 thou/uL (0.0-0.2); #Eosinphils 0.2 thou/uL (0.0-0.7); #Lymphocytes 1.3 thou/uL (1.20-3.40); #Monocytes 0.9 thou/uL (0.11-0.59); #Neutrophils 5.8 thou/uL (1.40-6.50); %Basophils 0.8 % (0.0-1.0); %Eosinophils 2.5 % (0.0-10.0); %Lymphocytes 15.3 % (21.0-51.0); %Neutrophils 70.4 % (42.0-75.0); Hemoglobin 14.2 g/dL (12.0-16.0); Mean Corpuscular HGB CONC 32.4 g/dL (32.0-36.0); Mean Corpuscular Hemoglobin 31.4 pg (27.0-31.0); Mean Platelet Volume 8.3 fL (7.4-10.4); Platelet Count 210 thou/uL (130-400); RBC Distribution Width 12.5 % (11.5-14.5); Red Blood Cell (RBC) Count 4.53 mill/uL (4.20-5.40); White Blood Cell (WBC) Count 8.2 thou/uL (4.8-10.8)
[2018-09-22] MEDS ORDERED: Lidocaine 1% PF 5 ML VIAL ONE (08:38)
[2018-09-22] MEDS ORDERED: Sodium Bicarbonate 2.5 MEQ/5 ML VIAL ONE (08:38)
[2018-09-22] MEDS ORDERED: Fentanyl 100 MCG/2 ML VIAL ONE (08:38)
[2018-09-22] MEDS ORDERED: Midazolam HCl 2 mg/2 ml Vial ONE (08:38)
[2018-09-22 08:43] LABS: PTT 28.9 SEC (22.9-36.1)
[2018-09-22] MEDS ORDERED: Benzonatate 100 MG CAP PO SCH (11:30)
--- NOTE | 2018-09-22 11:32 | RAD ---
Chest inspiratory expiratory views HISTORY: Left lung mass. Biopsy. FINDINGS: Cardiac silhouette is magnified and enlarged. Pulmonary vasculature are unremarkable. Lungs are hyperinflated. Parenchymal scarring at each lung base is again demonstrated. Mediastinum is midline with aortic calc ification. Metallic clips over the right axilla. Postoperative changes right shoulder. No evidence of pneumothorax. Patient will be monitored in the holding area.
[2018-09-22 11:46] VITALS: BP 167/71; TEMP 98.5
--- NOTE | 2018-09-22 12:56 | RAD ---
Chest inspiratory expiratory views HISTORY: Lung mass. Biopsy. COMPARISON: Earlier exam on the same date. FINDINGS: Lungs are well-inflated. No pneumothorax. Other findings are stable. Patient will be cleared radiographically for discharge.
--- NOTE | 2018-09-22 14:24 | CT ---
CT-guided left lung mass biopsy Conscious sedation: At least 40 minutes were spent with the patient for conscious sedation. HISTORY: Left lung mass. FINDINGS: After explaining the procedure and answering all questions, CT imaging of the lower chest w as performed. The soft tissue density mass at the left lower lobe adjacent to the descending aorta was not significantly smaller than on the most recent PET/CT from 09/07/2018. The abnormality and over all appearance of the lungs, in many ways, are more suggestive of atelectasis and/or necrosis rather than a rounded mass. Additional areas of atelectasis are present within each lung. Small amoun t of left pleural fluid. Patient was placed in left lateral decubitus position. Sterile technique, buffered local anesthesia, CT guidance, conscious sedation, and a left posterior approach were used to carefully advance the tip of a 19-gauge trocar needle into the left lower lobe mass adjacent to the aorta. With careful dir ectional needle placement, a total of 3 20-gauge core biopsy specimens were obtained. Good tissue was placed into the formalin and sent to pathology for evaluation. Needle was removed. No evidence of pneumothorax or other complication. Patient tolerated the procedure well, was monitored in holding area, and eventually discharged in goo d condition. IMPRESSION: Technically successful CT-guided left lower lobe mass biopsy. The overall imaging evaluation and history of recent pulmonary embolus suggest that the abnormality m ay be a focus of atelectasis/necrosis in the left lower lobe rather than a neoplastic process. Should the pathology report describe tissue consistent with atelectasis/necrosis, with no malignancy, this pathologic diagnosis would correspond with the imaging findings.
== END 2018-09-22 13:15 | disposition home or self-care (01) ==
LOC: CT 08:27
PROVIDERS: ATTEND Internal Medicine Critical Care Medicine
DX: J98.4 Other disorders of lung (principal); I11.0 Hypertensive heart disease with heart failure; I50.30 Unspecified diastolic (congestive) heart failure; M19.90 Unspecified osteoarthritis, unspecified site; K21.9 Gastro-esophageal reflux disease without esophagitis; H91.90 Unspecified hearing loss, unspecified ear; Z79.899 Other long term (current) drug therapy; Z88.8 Allergy status to other drugs, medicaments and biological substances
CPT/HCPCS: 32405; 36415; 71045; 77012; 85025; 85610; 85730; 88305; 88312; J2001; J2250; J3010

== ENCOUNTER 2018-12-08 08:41 | Outpatient (CLI) | payer MEDICARE, BC ==
--- NOTE | 2018-12-08 09:33 | MMO ---
Left Breast MAMMO Unilat Diag DDI LT+JOHN. CLINICAL HISTORY: Patient is 83 years old and is seen for diagnostic exam. The patient has the following family history of breast cancer: mother, at age 55. The patient has a history of right Mastectomy at age 60. VIEWS: The views performed were: left craniocaudal with tomosynthesis; left mediolateral oblique with tomosynthesis; and left mediolateral with tomosynthesis. FILMS COMPARED: The present examination has been compared to prior imaging studies performed at [facility] on 03/25/2016, 05/26/2017, 05/29/2018 and 12/08/2018. This study has been interpreted with the assistance of computer-aided detection. MAMMOGRAM FINDINGS: There are scattered fibroglandular densities. There are no suspicious masses, suspicious calcifications, or new areas of architectural distortion. There are no mammographic or sonographic abnormalities in the area of palpable concern. The patient is referred back to her clinician. Negative imaging findings should not preclude biopsy if clinical findings are suspicious. IMPRESSION: THERE IS NO MAMMOGRAPHIC EVIDENCE OF MALIGNANCY. THE RESULTS OF THIS EXAM WERE SENT TO THE PATIENT. ACR BI-RADS Category 1 - Negative MAMMOGRAPHY NOTE: 1. A negative mammogram report should not delay a biopsy if a dominant of clinically suspicious mass is present. 2. Approximately 10% to 15% of breast cancers are not detected by mammography. 3. Adenosis and dense breasts may obscure an underlying neoplasm. Reported by: COLIN GALLARDO MD Electonically Signed: [id number]
--- NOTE | 2018-12-08 09:34 | ULT ---
LIMITED LEFT BREAST ULTRASOUND: DATE: 12/08/2018. PROVIDED CLINICAL HISTORY: Left breast palpable abnormality. FINDINGS: Limited sonographic interrogation was performed in the region of palpable concern. The sonographic a ppearance of the breast tissue in this region is normal. IMPRESSION: BIRADS category 1 - negative. Negative imaging findings should not preclude further evaluation of a clinically suspicious area. The patient is referred back to her clinician. POS: OFF
== END 2018-12-08 08:42 | disposition home or self-care (01) ==
LOC: BICMAMMO 08:41
PROVIDERS: ATTEND Internal Medicine
DX: N63.23 Unspecified lump in the left breast, lower outer quadrant (principal); Z98.82 Breast implant status; Z90.11 Acquired absence of right breast and nipple
CPT/HCPCS: 76642; 77065; G0279

== ENCOUNTER 2019-01-04 10:47 | Outpatient (CLI) | payer MEDICARE, BC ==
--- NOTE | 2019-01-04 14:01 | CT ---
CT CHEST WITH IV CONTRAST: Date: 01/04/19 HISTORY: Right breast cancer. Abnormal findings in the lung bush. FINDINGS: Correlation is made with the PET CT of 09/07/18. There are vascular calcifications without evidence of aneurysmal dilatation of the thoracic aorta. Th e patient has a right breast implant. No pericardial effusion is seen. There is a tiny right and a sm all left effusion. There is mediastinal lymphadenopathy with precarinal lymph node measuring 11 mm. There is a 15 mm rig ht hilar lymph node. There has been interval increase in number and size of the pulmonary nodules seen on the PET CT of . The peripheral nodules in the right lower lobe measure 11.0 mm anteriorly and 11.0 mm posteri jerome. No osteolytic or osteoblastic lesions are seen. There are degenerative changes in the spine. A small hiatal hernia is present. IMPRESSION: 1. Interval worsening of pulmonary metastases since 09/07/18. 2. Mediastinal and right hilar lymphadenopathy. 3. Tiny right and small left pleural effusions. POS: [facility]
[2019-01-04] MEDS ORDERED: Iopamidol 370 76% 100 ML VIAL ONE (15:12)
== END 2019-01-04 10:48 | disposition home or self-care (01) ==
LOC: CT 10:47
PROVIDERS: ATTEND Internal Medicine Critical Care Medicine
DX: R91.8 Other nonspecific abnormal finding of lung field (principal); C78.02 Secondary malignant neoplasm of left lung; R59.0 Localized enlarged lymph nodes; J90 Pleural effusion, not elsewhere classified
CPT/HCPCS: 71260; Q9967

== ENCOUNTER 2019-03-15 10:33 | Outpatient (CLI) | payer MEDICARE, BC | END 2019-03-15 10:34 | disposition home or self-care (01) | PROVIDERS: ATTEND Internal Medicine Critical Care Medicine | DX: J18.9 Pneumonia, unspecified organism (principal) | CPT/HCPCS: 74230 ==

== ENCOUNTER 2019-09-16 12:44 | Observation (INO) | payer MEDICARE, BC, OTHER ==
[2019-09-16 13:25] LABS: Bilirubin Negative (Negative); Blood, Urine Negative (Negative); Clarity Clear (Clear); Glucose, Urine (Dipstick) Normal (Negative); Ketone, Urine Negative (Negative); Leukocyte Negative Leu/uL (Negative); Nitrite Negative (Negative); Protein, Urine (Dipstick) Negative (Neg-Trace); Specific Gravity, Urine 1.007 (1.002-1.036); Urobilinogen Normal mg/dL (Less than 2)
[2019-09-16 13:57] LABS: #Eosinphils 0.2 thou/uL (0.0-0.7); #Lymphocytes 1.3 thou/uL (1.20-3.40); #Monocytes 0.8 thou/uL (0.11-0.59); #Neutrophils 7.7 thou/uL (1.40-6.50); %Eosinophils 2.3 % (0.0-10.0); %Neutrophils 76.7 % (42.0-75.0); Hemoglobin 14.3 g/dL (12.0-16.0); Mean Corpuscular HGB CONC 32.6 g/dL (32.0-36.0); Mean Corpuscular Hemoglobin 32.4 pg (27.0-31.0); Mean Corpuscular Volume 99.5 fL (78.0-98.0); Mean Platelet Volume 8.1 fL (7.4-10.4); Platelet Count 195 thou/uL (130-400); RBC Distribution Width 12.5 % (11.5-14.5)
[2019-09-16 14:36] LABS: ALT (SGPT) 15 U/L (8-55); AST (SGOT) 20 U/L (5-34); Albumin 3.6 g/dL (3.4-4.8); Alkaline Phosphatase 95 U/L (40-110); Anion Gap 15 mmol/L (10-20); BUN (Urea Nitrogen) 20 mg/dL (9.8-20.1); Bilirubin, Total 0.3 mg/dL (0.2-1.2); Calc. Creatinine Clearance 0 mL/min (70-130); Calcium 8.3 mg/dL (7.8-10.44); Carbon Dioxide 25 mmol/L (23-31); Chloride 99 mmol/L (98-107); Estimated GFR-MDRD 55; Glucose 96 mg/dL (83-110); Protein, Total 6.6 g/dL (6.0-8.3); Sodium 135 mmol/L (136-145)
[2019-09-16 14:51] LABS: CKMB 2.7 ng/mL (0-6.6)
--- NOTE | 2019-09-16 16:07 | CT ---
CT BRAIN PERFORMED WITHOUT CONTRAST ENHANCEMENT: History: Syncope. Patient of Plaxis. Weakness this morning. Comparison: 12-31-12 FINDINGS: There is generalized ventricular and sulcal prominence. Decreased attenuation of the periventricular white matter is consistent with some chronic white matter change. There are no signs of intracerebral hemorrhage or extraaxial fluid collections. Mastoid air cells and visualized sinuses are clear. IMPRESSION: No acute intracranial abnormalities. POS: [facility]
--- NOTE | 2019-09-16 16:11 | RAD ---
PORTABLE CHEST: History: Syncopal episode Comparison: 06-14-17 FINDINGS: Heart size upper limits. There are atherosclerotic changes of the aorta. The lungs are clear of infil trates. Right breast augmentation, surgical clips in the right axilla are noted. IMPRESSION: No active intrathoracic disease. POS: [facility]
[2019-09-16 17:51] LABS: Troponin I 0.034 ng/mL (< 0.028)
--- NOTE | 2019-09-16 19:03 | ULT ---
CAROTID DOPPLER: Indication: Syncope. FINDINGS: Ultrasound doppler study is performed in the extracranial carotid arteries. Color doppler, spectral a nalysis and velocity recordings obtained along with ultrasound imaging. Images show echogenic plaque in both bulbs and proximal ICA, slightly more prominent on the left. Velocity recordings are normal bilaterally. There is no evidence of significant stenosis. Vertebral arteries show antegrade flow. IMPRESSION: Mild to moderate echogenic plaque seen in both bulb and proximal ICAs. No evidence of hemodynamically significant stenosis. POS: [facility]
[2019-09-16 20:18] LABS: Troponin I 0.024 ng/mL (< 0.028)
[2019-09-16] MEDS ORDERED: Atorvastatin Calcium 40 MG TAB PO SCH (21:00)
[2019-09-16] MEDS ORDERED: Donepezil HCl 5 MG TAB PO SCH (21:00)
[2019-09-16] MEDS: Famotidine 20 MG TAB PO SCH (21:09)
[2019-09-17 04:50] LABS: #Basophils 0.1 thou/uL (0.0-0.2); #Eosinphils 0.3 thou/uL (0.0-0.7); #Lymphocytes 1.4 thou/uL (1.20-3.40); #Monocytes 0.8 thou/uL (0.11-0.59); #Neutrophils 3.8 thou/uL (1.40-6.50); %Basophils 1.2 % (0.0-1.0); %Eosinophils 4.5 % (0.0-10.0); %Lymphocytes 22.4 % (21.0-51.0); %Monocytes 11.8 % (0.0-10.0); %Neutrophils 60.2 % (42.0-75.0); Hemoglobin 12.4 g/dL (12.0-16.0); Mean Corpuscular HGB CONC 31.2 g/dL (32.0-36.0); Mean Corpuscular Hemoglobin 31.3 pg (27.0-31.0); Mean Platelet Volume 7.6 fL (7.4-10.4); Platelet Count 185 thou/uL (130-400); RBC Distribution Width 12.6 % (11.5-14.5); Red Blood Cell (RBC) Count 3.95 mill/uL (4.20-5.40); White Blood Cell (WBC) Count 6.3 thou/uL (4.8-10.8)
[2019-09-17 05:13] LABS: Chloride 102 mmol/L (98-107); Potassium 3.8 mmol/L (3.5-5.1); Sodium 137 mmol/L (136-145); Triglycerides 212 mg/dL (Less than 150)
[2019-09-17 05:25] LABS: Anion Gap 12 mmol/L (10-20); BUN (Urea Nitrogen) 21 mg/dL (9.8-20.1); Calc. Creatinine Clearance 36 mL/min (70-130); Calcium 8.2 mg/dL (7.8-10.44); Carbon Dioxide 26 mmol/L (23-31); Cardiac Risk 2.4 (Less than 4.5); Cholesterol 109 mg/dl (< 200 Desired); Estimated GFR-MDRD 62; Glucose 86 mg/dL (83-110); HDL Cholesterol 45 mg/dL (>60 Neg Risk); LDL Cholesterol, Calculated 52 mg/dL
--- NOTE | 2019-09-17 05:46 | HP ---
PCP: Dr. Quiros. CHIEF COMPLAINT: "I almost passed out." HISTORY OF PRESENT ILLNESS: The patient is a very pleasant 83-year-old female, with past medical history significant for congestive heart failure, coronary artery disease, and hypertension. She presents to the ER today after she had gone to the restroom this morning and was unable to stand up from the toilet. She had to get her to come help her up and to walk back to her chair. She nearly collapsed while walking and he assisted her down to the chair, where she then was nauseated and vomited. She still feels slightly weak, but is significantly better than this morning. She states that this feels like what she felt like in the past when she had her two TIAs. She denies any chest pain, abdominal pain, sick contacts, or fever. During the event, she states that she was able to think clearly, although she did feel a little lightheaded. She does state that she has a cough, but she has had this dry cough since last November. Today in the ER, they completed lab work, a urinalysis, a chest x-ray, a brain CT, and an EKG. PAST MEDICAL HISTORY: Includes congestive heart failure, hyperlipidemia, hypertension, and coronary artery disease. PAST SURGICAL HISTORY: Left knee replacement, multiple back surgeries, right mastectomy, cataract surgery, appendectomy, hysterectomy. ALLERGIES: AMLODIPINE, GABAPENTIN, LORATADINE, PSEUDOEPHEDRINE. MEDICATIONS: 1. Isosorbide mononitrate 60 mg in the morning. 2. Metoprolol succinate 100 mg once a day. 3. Multivitamin. 4. Candesartan 16 mg half a tablet in the morning for blood pressure. 5. Donepezil 5 mg. 6. Vascepa 1 g daily. 7. Esomeprazole 40 mg daily. 8. Aspirin 81 mg daily. 9. Furosemide 40 mg daily. 10. Hydralazine 50 mg. 11. Citalopram 10 mg daily. 12. Plavix 75 mg daily. 13. Singulair 10 mg daily. 14. Atorvastatin 40 mg at night. 15. Clonidine 0.1 mg patch once weekly. SOCIAL HISTORY: The patient is retired. Lives at home with her . She denies any smoking, alcohol, or drug use history. FAMILY HISTORY: Positive for coronary artery disease with her father. REVIEW OF SYSTEMS: All other review of systems was negative unless noted in HPI. PHYSICAL EXAMINATION: VITAL SIGNS: Temperature 97.5, pulse 56, respiratory rate 16, O2 saturations 96 % on room air, blood pressure 137/70. GENERAL: The patient appears in no acute distress. Nontoxic. HEENT: Head, atraumatic and normocephalic. Eyes; extraocular muscles intact, PERRLA. NECK: Normal range of motion. No tenderness. RESPIRATORY: No respiratory distress. Clear to auscultation bilaterally. Symmetrical chest movement. No rhonchi. No wheezes or rales. CARDIOVASCULAR: Regular rate and rhythm. No murmurs. No gallops. No rubs. ABDOMEN: Nontender. No distention. Bowel sounds normal. EXTREMITIES: No cyanosis, no clubbing, no edema. NEUROLOGIC: Oriented to person, place, and time. Speech normal. No focal motor deficit. No focal sensory deficits. No cerebellar deficits. SKIN: Warm, dry, and intact. LABS AND IMAGING: EKG with lots of artifact. We will have repeat EKG completed on the floor. There was a question of atrial fibrillation, which would be a new finding for her. Chest x-ray showed no active intrathoracic disease. Brain CT showed no acute intracranial abnormalities. White blood cells 10, hemoglobin 14.3, hematocrit 43.7, platelet count 195. Sodium 135, potassium 4.0, chloride 99, BUN 20, creatinine 0.97, GFR 55, glucose 96. CK-MB 2.7, troponin 0.034. BNP 968.6. Urine shows no acute infectious process. IMPRESSION AND PLAN: 1. Near syncope, rule out transient ischemic attack versus cardiac event. We will consult Cardiology and Neurology for this event. The patient states she just had an echo completed and we will request those medical records from Dr. Scales' office. We will obtain a carotid Doppler as the patient states she has not had one in the past. We will also obtain orthostatic vital signs. The patient with elevated troponins, however, this does appear to be her baseline. There was concern on her initial EKG for atrial fibrillation. The patient states she does not have history of irregular heartbeat. Since being on telemetry, she has been in sinus rhythm, sinus mary grace. We will obtain another EKG. We will also continue to trend the troponins. The patient with congestive heart failure, we will weigh the patient daily, monitor for any fluid overload. We will ask Cardiac Rehab to come and see the patient and work with her. 2. Hypertension. The patient will be restarted on her home medications and also any p.r.n. hypertensives as needed. 3. Hyperlipidemia. The patient will have a fasting lipid completed in the morning and will be restarted on her home medications. 4. VTE prophylaxis with SCDs. GI prophylaxis with Pepcid. The patient wishes to be a full code. Her , Kevyn is her surrogate decision maker. This patient has been discussed with Dr. Lucia. Job ID: [id number] MTDD
[2019-09-17] MEDS: Famotidine 20 MG TAB PO SCH (08:23)
[2019-09-17] MEDS ORDERED: Clopidogrel Bisulfate 75 MG TAB PO SCH (09:00)
[2019-09-17] MEDS ORDERED: Furosemide 40 MG TAB PO SCH (09:00)
[2019-09-17] MEDS ORDERED: Aspirin 81 mg Enteric Coated Tablet PO SCH (09:00)
[2019-09-17] MEDS ORDERED: Citalopram 10 MG TAB PO SCH (09:00)
--- NOTE | 2019-09-17 12:14 | CON ---
NEUROLOGY CONSULTATION DATE OF CONSULTATION: 09/17/2019 REASON FOR CONSULTATION: Syncope. HISTORY OF PRESENT ILLNESS: Ms. Escobar is an 83-year-old female with medical history significant for congestive heart failure, hypertension, hyperlipidemia, and coronary artery disease, presented to the emergency room yesterday with complaint of passing out and feeling weak in the lower extremities. Apparently, the patient went to the restroom and was unable to stand up and was feeling weak, so has to assist her getting to the chair. The patient denies any focal weakness, focal numbness, nausea, vomiting, headache, chest pain, abdominal pain, recent illness , cough, vertigo, loss of vision or loss of consciousness associated with the episode. She denies any abnormal body movements and no alteration of consciousness associated with the episode. In the emergency room, head CT was done, which was negative for acute intracranial pathology. Chest x-ray and EKG were also unremarkable. REVIEW OF SYSTEMS: All 10 systems were reviewed and were negative except the pertinent positive and negative mentioned in the HPI. PAST MEDICAL HISTORY: Hyperlipidemia, congestive heart failure, hypertension, coronary artery disease. PAST SURGICAL HISTORY: Status post left knee replacement, multiple back surgeries, status post right mastectomy, cataract surgery, appendectomy, hysterectomy. ALLERGIES: GABAPENTIN, LORATADINE, PSEUDOEPHEDRINE, AMLODIPINE. HOME MEDICATIONS: 1. Isosorbide mononitrate 60 mg in the morning. 2. Metoprolol succinate 100 mg once daily. 3. Multivitamin. 4. Candesartan 16 mg half tablet in the morning for blood pressure. 5. Donepezil 5 mg daily. 6. Vascepa 1 g daily. 7. Esomeprazole 40 mg daily. 8. Aspirin 81 mg daily. 9. Furosemide 40 mg daily. 10. Hydralazine 50 mg daily. 11. Plavix 75 mg daily. 12. Atorvastatin 40 mg daily. 13. Singulair 10 mg daily. 14. Citalopram 10 mg daily. 15. Clonidine 0.1 mg patch once weekly. SOCIAL HISTORY: The patient is retired, , lives with her . Denies smoking, alcohol, or illegal drug use. FAMILY HISTORY: Significant for coronary artery disease on paternal side. Objective Vital Signs & Weight: Vital Signs (12 hours) Temp Pulse Pulse Pulse Resp BP BP 09/17/19 11:15 97.7 F 62 16 09/17/19 09:22 66 71 145/63 H 166/72 H 09/17/19 08:23 98.6 F 65 22 H 09/17/19 05:11 97.7 F 60 14 BP BP Pulse Ox Pulse Ox Pulse Ox 09/17/19 11:15 170/70 H 95 09/17/19 09:22 96 98 09/17/19 08:23 165/67 H 95 09/17/19 05:11 145/64 H 95 Weight Admit Weight 102 lb Weight 112 lb 4.8 oz I&O: 09/16/19 09/17/19 09/18/19 06:59 06:59 06:59 Intake Total 480 Output Total 1400 Balance -920 Additional Labs: Laboratory Tests 09/16/19 09/16/19 09/16/19 13:50 14:04 17:14 Troponin I 0.034 H 0.034 H B-Natriuretic Peptide 968.6 H Triglycerides Cholesterol LDL Cholesterol, Calc HDL Cholesterol COVID-19 PCR 09/16/19 09/16/19 09/17/19 19:36 19:40 04:12 Troponin I 0.024 B-Natriuretic Peptide Triglycerides 212 H Cholesterol 109 LDL Cholesterol, Calc 52 HDL Cholesterol 45 COVID-19 PCR Not Detected Active Medications Generic Name Dose Route Start Last Admin Trade Name Rolandoq PRN Reason Stop Dose Admin Aspirin 81 mg 09/17/19 09:00 09/17/19 08:24 Ecotrin PO 81 mg DAILY MALOU Administration Atorvastatin Calcium 40 mg 09/16/19 21:00 09/16/19 21:09 Lipitor PO 40 mg HS MALOU Administration Citalopram Hydrobromide 10 mg 09/17/19 09:00 09/17/19 08:24 Celexa PO 10 mg DAILY MALOU Administration Clopidogrel Bisulfate 75 mg 09/17/19 09:00 09/17/19 08:23 Plavix PO 75 mg DAILY MALOU Administration Donepezil HCl 5 mg 09/16/19 21:00 09/16/19 21:09 Aricept PO 5 mg HS MALOU Administration Furosemide 40 mg 09/17/19 09:00 09/17/19 08:23 Lasix PO 40 mg DAILY MALOU Administration - Exam General Appearance: NAD, awake alert Eye: PERRL, anicteric sclera ENT: normocephalic atraumatic, no oropharyngeal lesions Neck: supple, symmetric, no JVD, no thyromegaly, no lymphadenopathy Heart: RRR, no gallops, no rubs, normal peripheral pulses Heart - other findings: S1, S2 Respiratory: CTAB, no wheezes, no rales, no ronchi, normal chest expansion Gastrointestinal: soft, non-tender, non-distended, normal bowel sounds, no palpable masses NEUROLOGICAL: Mental status: The patient is alert and oriented to person, place, and time. Recent and remote memory intact. Speech is clear. Fund of knowledge is appropriate. Cranial nerves 2 through 12 intact. Motor: Muscle tone and bulk are normal. Strength is 5/5 bilaterally. Sensory: Intact. Cerebellar: Finger- nose testing intact. Gait: Deferred due to the patient's safety reasons. DATA REVIEWED: I reviewed the labs, which were essentially unremarkable. Chest x-ray was negative for acute process. UTI was insignificant. Head CT reviewed, which was negative for acute intracranial abnormalities. ASSESSMENT AND PLAN: Ms. Annie Escobar is consulted for possible transient ischemic attack. She does have risk factors for stroke. Her head CT reviewed, which was negative for acute intracranial process. Carotid Dopplers did not reveal hemodynamically significant stenosis. Continue telemetry to evaluate for atrial fibrillation since the initial EKG was concerned for atrial fibrillation. Continue aspirin and statin for secondary stroke prevention. Monitor blood pressure and blood glucose. Check hemoglobin A1c, fasting lipid profile, and TSH. MRI of brain if possible. Otherwise, repeat head CT. PT/OT/speech. Neuro checks every 4 hours. We will continue to follow. Thank you for the consult. Job ID: [id number] MTDD
[2019-09-17 12:36] LABS: SARS-CoV-2 MS2 Positive; SARS-CoV-2 N Gene Negative; SARS-CoV-2 S Gene Negative; SARS-CoV-2 by NAA Not Detected (NotDetected); SARS-CoV-2 orf1ab Negative
[2019-09-17 13:02] VITALS: BMI 18.1
[2019-09-17] MEDS ORDERED: Cepastat Lozenges 1 LOZ PO PRN (14:27)
--- NOTE | 2019-09-17 15:03 | PDOC.HOSPP ---
- Subjective Encounter Date: 09/17/19 Encounter Time: 14:50 Subjective: f/u for near syncope with essentially negative work up to date. - Objective Vital Signs & Weight: Vital Signs (12 hours) Temp Pulse Pulse Pulse Resp BP BP 09/17/19 11:15 97.7 F 62 16 09/17/19 09:22 66 71 145/63 H 166/72 H 09/17/19 08:23 98.6 F 65 22 H 09/17/19 05:11 97.7 F 60 14 BP BP Pulse Ox Pulse Ox Pulse Ox 09/17/19 11:15 170/70 H 95 09/17/19 09:22 96 98 09/17/19 08:23 165/67 H 95 09/17/19 05:11 145/64 H 95 Weight Admit Weight 102 lb Weight 112 lb 4.8 oz I&O: 09/16/19 09/17/19 09/18/19 06:59 06:59 06:59 Intake Total 480 Output Total 1400 Balance -920 Result Diagrams: 09/17/19 04:12 09/17/19 04:12 Additional Labs: Laboratory Tests 09/16/19 09/16/19 09/16/19 13:50 14:04 17:14 Troponin I 0.034 H 0.034 H B-Natriuretic Peptide 968.6 H Triglycerides Cholesterol LDL Cholesterol, Calc HDL Cholesterol COVID-19 PCR 09/16/19 09/16/19 09/17/19 19:36 19:40 04:12 Troponin I 0.024 B-Natriuretic Peptide Triglycerides 212 H Cholesterol 109 LDL Cholesterol, Calc 52 HDL Cholesterol 45 COVID-19 PCR Not Detected Radiology Reviewed by me: Yes (Carotid sono - no significant stenosis) EKG Reviewed by me: Yes (Tele - SR) Hospitalist ROS - Medication Medications: Active Medications Generic Name Dose Route Start Last Admin Trade Name Freq PRN Reason Stop Dose Admin Aspirin 81 mg 09/17/19 09:00 09/17/19 08:24 Ecotrin PO 81 mg DAILY MALOU Administration Atorvastatin Calcium 40 mg 09/16/19 21:00 09/16/19 21:09 Lipitor PO 40 mg HS MALOU Administration Citalopram Hydrobromide 10 mg 09/17/19 09:00 09/17/19 08:24 Celexa PO 10 mg DAILY MALOU Administration Clopidogrel Bisulfate 75 mg 09/17/19 09:00 09/17/19 08:23 Plavix PO 75 mg DAILY MALOU Administration Donepezil HCl 5 mg 09/16/19 21:00 09/16/19 21:09 Aricept PO 5 mg HS MALOU Administration Furosemide 40 mg 09/17/19 09:00 09/17/19 08:23 Lasix PO 40 mg DAILY MALOU Administration - Exam General Appearance: NAD, awake alert Eye: PERRL, anicteric sclera ENT: normocephalic atraumatic, no oropharyngeal lesions Neck: supple, symmetric, no JVD, no thyromegaly, no lymphadenopathy Heart: RRR, no gallops, no rubs, normal peripheral pulses Heart - other findings: S1, S2 Respiratory: CTAB, no wheezes, no rales, no ronchi, normal chest expansion Gastrointestinal: soft, non-tender, non-distended, normal bowel sounds, no palpable masses Extremities: no cyanosis, no clubbing, no edema Skin: normal turgor, no lesions Neurological: cranial nerve grossly intact, no new deficit Musculoskeletal: normal tone, generalized weakness Psychiatric: normal affect, A&O x 3
[2019-09-17] MEDS ORDERED: Polyethylene Glycol OPTH DROP 15 ML BOT EA EYE PRN (15:08)
[2019-09-17 15:22] VITALS: BP 144/75; TEMP 98.1
--- NOTE | 2019-09-17 15:55 | DIS ---
DATE OF ADMISSION: 09/16/2019 DATE OF DISCHARGE: 09/17/2019 DISCHARGE DIAGNOSES: 1. Near syncope, etiology unclear. 2. Hypertension, stable. 3. Hyperlipidemia, mild. 4. Coronary artery disease, chronic and stable. CONSULTATIONS: Dr. Mac with Neurology Service. PERTINENT LABORATORY AND X-RAY FINDINGS: Troponin I ranged between 0.024 to 0.034. BNP 969. Total cholesterol 109, triglycerides 212, HDL 45, and LDL 52. COVID-19 PCR not detected on 09/16/2019. CT of the brain without contrast dated 09/16/2019, showed no acute intracranial process. Portable chest x-ray dated 09/16/2019, showed no acute cardiopulmonary process. Carotid Doppler study dated 09/16/2019, showed no hemodynamically significant stenosis. HOSPITAL COURSE: The patient was observed on the telemetry unit after initially presenting with near syncopal episode. The patient underwent general evaluation including CT of the brain showing no acute process. Carotid Doppler study was unrevealing as no significant stenosis was identified. Screening metabolic survey was essentially unremarkable and the patient's telemetry monitoring showed sinus mechanism without evidence of acute arrhythmia or dysrhythmia throughout the hospital course. The patient was evaluated by the Neurology Service with recommendations for secondary prevention management including continuation of aspirin and statin agent. The patient was also evaluated by the Cardiology Service without specific recommendations for any acute intervention. Overall, the patient did remain clinically stable during the hospital course, tolerating regular oral intake and ambulating without assistance or difficulty. I have examined the patient at the time of discharge and discussed followup instructions. The patient overall clinically stable and ready for discharge on 09/17/2019. DISCHARGE MEDICATIONS: 1. Enteric-coated aspirin 81 mg p.o. daily. 2. Plavix 75 mg p.o. daily. 3. Lipitor 40 mg p.o. at bedtime. 4. Calcium carbonate 600 mg p.o. daily. 5. Atacand 16 mg p.o. b.i.d. 6. Vitamin D3 of 1250 mcg p.o. daily. 7. Celexa 10 mg p.o. daily. 8. Catapres 0.3 mg p.o. q.7 days. 9. Aricept 5 mg p.o. at bedtime. 10. Nexium 40 mg p.o. at bedtime. 11. Lasix 40 mg p.o. daily. 12. Hydralazine 50 mg p.o. at bedtime. 13. Vascepa 2 g p.o. daily. 14. Imdur 60 mg p.o. daily. 15. Metoprolol-XL 100 mg p.o. at bedtime. 16. Singulair 10 mg p.o. at bedtime. 17. Nitroglycerin 0.4 mg sublingually as needed for chest pain. 18. Valacyclovir 500 mg p.o. daily. FOLLOWUP: The patient may follow up with her primary care provider, Dr. Darci Quiros. CONDITION ON DISCHARGE: Stable. ACTIVITY: Ad-stephanie. DIET: Heart healthy. CODE STATUS: Full. DISPOSITION: Home on 09/17/2019. Job ID: [id number]
[2019-09-17] MEDS ORDERED: Montelukast Sodium 10 mg Tablet PO SCH (21:00)
[2019-09-17] MEDS ORDERED: hydrALAZINE 25 MG TAB PO SCH (21:00)
--- NOTE | 2019-09-18 07:03 | CON ---
DATE OF CONSULTATION: REASON FOR CONSULTATION: Elevated troponin. PRIMARY DATA CAPTURE CLERK: Ivonne Scales MD. HISTORY OF PRESENT ILLNESS: Ms. Escobar is an 83-year-old woman who recently presented to the emergency room via EMS due to profound weakness. She states she had trouble lifting herself out of her chair. She tried to get assistance from her and could not. She denied chest pain, pressure, or other associated symptoms. The patient did have a troponin of 0.034, which is felt to be indeterminate. Followup troponin was negative. PAST MEDICAL HISTORY: Diastolic heart failure, hyperlipidemia, hypertension, mild CAD with catheterization in 2016. ALLERGIES: AMLODIPINE, GABAPENTIN, LORATADINE. MEDICATIONS: 1. Isosorbide. 2. Metoprolol. 3. Multivitamin. 4. Candesartan. 5. Vascepa. 6. Aspirin. 7. Lasix. 8. Hydralazine. 9. Citalopram. 10. Plavix. 11. Singulair. 12. Atorvastatin. SOCIAL HISTORY: No current tobacco or alcohol use. REVIEW OF SYSTEMS: A 10-point review of systems is reviewed as above, otherwise negative. PHYSICAL EXAMINATION: GENERAL: Patient is a pleasant female who is in no acute distress. The patient appears their stated age. VITAL SIGNS: Blood pressure 144/75, pulse 64, temperature 98.1. NEUROLOGIC: The patient is alert and oriented x3 with no focal neurologic deficits. HEENT: Sclerae without icterus. Mouth has moist mucous membranes with normal pallor. NECK: No JVD. Carotid upstroke brisk. No bruits bilaterally. LUNGS: Clear to auscultation with unlabored respirations. BACK: No scoliosis or kyphosis. CARDIAC: Regular rate and rhythm with normal S1 and S2. No S3 or S4 noted. No significant rubs, murmurs, thrills, or gallops noted throughout the precordium. PMI is not displaced. There is no parasternal heave. ABDOMEN: Soft, nontender, nondistended. No peritoneal signs present. No hepatosplenomegaly. No abnormal striae. EXTREMITIES: 2+ femoral and 2+ dorsalis pedis pulses. No cyanosis, clubbing, or edema. SKIN: No gross abnormalities. PERTINENT LABORATORY DATA: Creatinine 0.87. EKG, normal sinus rhythm, normal EKG. IMPRESSION: 1. Weakness. 2. Elevated troponin. RECOMMENDATIONS: Ms. Escobar had an angiogram performed in 2016 with mild coronary artery disease. She has no current symptoms suggesting angina. Her EKG is within normal limits. At this point, we would seek a noncardiac cause. From my standpoint, it will be okay for discharge with outpatient followup. We will recommend echo prior to discharge to make sure her LVEF appears normal. Otherwise, I have no further recommendations. Job ID: [id number]
[2019-09-18] MEDS ORDERED: Famotidine 20 MG TAB PO SCH (09:00)
[2019-09-18] MEDS ORDERED: valACYclovir 500 MG TAB PO SCH (09:00)
[2019-09-18] MEDS ORDERED: Fluticasone Propionate Nasal Spray 16 gm Bottle NASAL SCH (09:00)
[2019-09-18] MEDS ORDERED: Icosapent Ethyl 2 GM PO SCH (09:00)
[2019-09-18] MEDS ORDERED: Cholecalciferol 1,000 UNITS (25 MCG) TAB PO SCH (09:00)
[2019-09-18] MEDS ORDERED: cloNIDine 0.3 MG TAB PO SCH (09:00)
[2019-09-18] MEDS ORDERED: Aspirin 81 mg Enteric Coated Tablet PO SCH (09:00)
[2019-09-18] MEDS ORDERED: Calcium Carbonate 600 MG TAB PO SCH (09:00)
[2019-09-18] MEDS ORDERED: Clopidogrel Bisulfate 75 MG TAB PO SCH (21:00)
== END 2019-09-17 17:40 | disposition home or self-care (01) ==
LOC: ERS 12:44 → 2NO 15:03
PROVIDERS: ADMIT Internal Medicine; ATTEND Internal Medicine
DX: R55 Syncope and collapse (principal); I11.0 Hypertensive heart disease with heart failure; I50.30 Unspecified diastolic (congestive) heart failure; I25.10 Atherosclerotic heart disease of native coronary artery without angina pectoris; E78.5 Hyperlipidemia, unspecified; Z79.82 Long term (current) use of aspirin; Z79.899 Other long term (current) drug therapy; Z88.8 Allergy status to other drugs, medicaments and biological substances
CPT/HCPCS: 70450; 71045; 80048; 80053; 80061; 81003; 82553; 83880; 84484 ×2; 85025 ×2; 93005; 93798; 93880; 99285; U0003; 36415; 87635; 93010; G0378

== ENCOUNTER 2020-08-12 08:32 | Inpatient (IN) | payer MEDICARE, BC ==
[2020-08-12 09:09] LABS: #Basophils 0.1 thou/uL (0.0-0.2); #Eosinphils 0.1 thou/uL (0.0-0.7); #Monocytes 0.8 thou/uL (0.11-0.59); #Neutrophils 10.3 thou/uL (1.40-6.50); %Basophils 0.5 % (0.0-1.0); %Eosinophils 0.6 % (0.0-10.0); %Monocytes 6.4 % (0.0-10.0); %Neutrophils 84.5 % (42.0-75.0); Hemoglobin 14.1 g/dL (12.0-16.0); Mean Corpuscular HGB CONC 31.4 g/dL (32.0-36.0); Mean Corpuscular Hemoglobin 31.5 pg (27.0-31.0); Mean Platelet Volume 7.5 fL (7.4-10.4); Platelet Count 286 thou/uL (130-400); Red Blood Cell (RBC) Count 4.47 mill/uL (4.20-5.40); White Blood Cell (WBC) Count 12.2 thou/uL (4.8-10.8)
[2020-08-12 09:27] LABS: ALT (SGPT) 15 U/L (8-55); AST (SGOT) 22 U/L (5-34); Albumin 3.6 g/dL (3.4-4.8); Alkaline Phosphatase 112 U/L (40-110); Anion Gap 13 mmol/L (10-20); BUN (Urea Nitrogen) 16 mg/dL (9.8-20.1); Bilirubin, Total 0.6 mg/dL (0.2-1.2); Calc. Creatinine Clearance 0 mL/min (70-130); Calcium 9.1 mg/dL (7.8-10.44); Carbon Dioxide 27 mmol/L (23-31); Chloride 103 mmol/L (98-107); Globulin 3.3 g/dL (2.4-3.5); Glucose 117 mg/dL (83-110); Potassium 4.1 mmol/L (3.5-5.1); Protein, Total 6.9 g/dL (5.8-8.1); Sodium 139 mmol/L (136-145)
[2020-08-12 09:49] LABS: CKMB 2.2 ng/mL (0-6.6)
[2020-08-12] MEDS ORDERED: Diltiazem 125 MG/25 ML ONE ×2 (10:40→10:43)
[2020-08-12] MEDS ORDERED: Diltiazem 125 MG in Sodium Chloride 0.9% 100 ML IVPB SCH (10:45)
[2020-08-12] MEDS ORDERED: Senokot S 8.6-50 MG TAB PO PRN (12:55)
[2020-08-12] MEDS ORDERED: HYDROcodone/Acetaminophen 5/325 mg Tablet PO PRN (12:55)
[2020-08-12] MEDS ORDERED: HYDROcodone/Acetaminophen 10/325 mg Tablet PO PRN (12:55)
[2020-08-12] MEDS ORDERED: Acetaminophen 325 MG TAB PO PRN (12:55)
[2020-08-12] MEDS ORDERED: Bisacodyl 5 MG TAB PO PRN (12:55)
[2020-08-12] MEDS ORDERED: Famotidine 20 MG TAB PO SCH (13:00)
[2020-08-12] MEDS ORDERED: Communication Order-Pharmacy FS SCH (13:11)
[2020-08-12] MEDS ORDERED: Furosemide 40 MG/4 ML VIAL ONE (13:17)
[2020-08-12] MEDS ORDERED: Nitroglycerin 2% Ointment 1 INCH/1 GM Packet ONE (13:17)
[2020-08-12] MEDS ORDERED: Aspirin Chewable 81 MG TAB ONE (13:17)
[2020-08-12] MEDS ORDERED: Nitroglycerin 2% Ointment 1 INCH/1 GM Packet TOP PRN (13:20)
[2020-08-12] MEDS ORDERED: Azithromycin 500 MG in Sodium Chloride 0.9% 250 ML 250 ML IVPB SCH (14:00)
[2020-08-12 14:31] LABS: Hemoglobin 13.2 g/dL (12.0-16.0); Platelet Count 271 thou/uL (130-400)
[2020-08-12 14:52] LABS: Troponin I 0.053 ng/mL (< 0.028)
[2020-08-12] MEDS ORDERED: cefTRIAXone\\ROCEPHIN 1 GM in Sodium Chloride 0.9% 100 ML IVPB SCH (15:00)
[2020-08-12 16:39] VITALS: BMI 19.1
[2020-08-12 16:45] LABS: Troponin I 0.047 ng/mL (< 0.028)
[2020-08-12] MEDS: Furosemide 20 MG/2 ML VIAL SLOW IVP SCH (16:56)
[2020-08-12] MEDS: cefTRIAXone\\ROCEPHIN 1 GM in Sodium Chloride 0.9% 100 ML IVPB SCH (17:42)
[2020-08-12] MEDS: Azithromycin 500 MG in Sodium Chloride 0.9% 250 ML 250 ML IVPB SCH (18:22)
[2020-08-12] MEDS: Atorvastatin Calcium 40 MG TAB PO SCH (21:20)
[2020-08-12] MEDS: Apixaban 2.5 MG TAB PO SCH (21:20)
[2020-08-13 05:06] LABS: #Eosinphils 0.1 thou/uL (0.0-0.7); #Lymphocytes 1.2 thou/uL (1.20-3.40); #Monocytes 0.8 thou/uL (0.11-0.59); #Neutrophils 5.5 thou/uL (1.40-6.50); %Basophils 0.5 % (0.0-1.0); %Eosinophils 0.8 % (0.0-10.0); %Monocytes 10.5 % (0.0-10.0); %Neutrophils 72.3 % (42.0-75.0); Hemoglobin 11.5 g/dL (12.0-16.0); Mean Corpuscular HGB CONC 31.9 g/dL (32.0-36.0); Mean Corpuscular Hemoglobin 31.8 pg (27.0-31.0); Mean Corpuscular Volume 99.7 fL (78.0-98.0); Mean Platelet Volume 7.7 fL (7.4-10.4); Platelet Count 208 thou/uL (130-400); RBC Distribution Width 12.8 % (11.5-14.5); Red Blood Cell (RBC) Count 3.61 mill/uL (4.20-5.40); White Blood Cell (WBC) Count 7.6 thou/uL (4.8-10.8)
[2020-08-13] MEDS: Furosemide 20 MG/2 ML VIAL SLOW IVP SCH ×2 (05:27→15:19)
[2020-08-13 05:30] LABS: Anion Gap 6 mmol/L (10-20); BUN (Urea Nitrogen) 16 mg/dL (9.8-20.1); Calc. Creatinine Clearance 46 mL/min (70-130); Calcium 8.4 mg/dL (7.8-10.44); Carbon Dioxide 32 mmol/L (23-31); Cardiac Risk 2.2 (Less than 4.5); Chloride 104 mmol/L (98-107); Cholesterol 101 mg/dl (< 200 Desired); Glucose 104 mg/dL (83-110); HDL Cholesterol 45 mg/dL (>60 Neg Risk); LDL Cholesterol, Calculated 46 mg/dL; Potassium 3.4 mmol/L (3.5-5.1); Sodium 139 mmol/L (136-145); Triglycerides 48 mg/dL (Less than 150)
[2020-08-13] MEDS: Aspirin Chewable 81 MG TAB PO SCH (10:15)
[2020-08-13] MEDS: Potassium Chloride 20 MEQ TAB PO SCH (10:15)
[2020-08-13] MEDS: Apixaban 2.5 MG TAB PO SCH ×2 (10:15→20:40)
[2020-08-13] MEDS: Losartan 25 MG TAB PO SCH (10:16)
[2020-08-13] MEDS: Clopidogrel Bisulfate 75 MG TAB PO SCH (10:16)
[2020-08-13] MEDS: Guaifenesin DM 100-10/5 ML UDCUP PO PRN ×2 (10:21→20:47)
[2020-08-13] MEDS ORDERED: Furosemide 20 MG/2 ML VIAL SLOW IVP SCH (10:45)
[2020-08-13] MEDS ORDERED: Metolazone 5 MG TAB PO SCH (10:45)
[2020-08-13] MEDS: Azithromycin 500 MG in Sodium Chloride 0.9% 250 ML 250 ML IVPB SCH (17:28)
[2020-08-13] MEDS: cefTRIAXone\\ROCEPHIN 1 GM in Sodium Chloride 0.9% 100 ML IVPB SCH (18:15)
[2020-08-13] MEDS: Atorvastatin Calcium 40 MG TAB PO SCH (20:40)
[2020-08-14] MEDS: Furosemide 20 MG/2 ML VIAL SLOW IVP SCH (07:35)
[2020-08-14] MEDS: Potassium Chloride 20 MEQ TAB PO SCH (07:35)
[2020-08-14] MEDS: Guaifenesin DM 100-10/5 ML UDCUP PO PRN (08:15)
[2020-08-14] MEDS: Aspirin Chewable 81 MG TAB PO SCH (08:15)
[2020-08-14] MEDS: Apixaban 2.5 MG TAB PO SCH (08:15)
[2020-08-14] MEDS: Clopidogrel Bisulfate 75 MG TAB PO SCH (08:15)
[2020-08-14] MEDS: Losartan 25 MG TAB PO SCH (08:15)
[2020-08-14] MEDS ORDERED: cloNIDine 0.3mg/24 Hour PATCH TD SCH (09:00)
[2020-08-14 11:58] VITALS: BP 110/56; TEMP 97.9
== END 2020-08-14 12:35 | disposition home or self-care (01) | DRG 291 ==
LOC: SUATTDRO 08:32 → ERS 08:32 → ERHOLD 12:55 → 2NO 15:32
PROVIDERS: ADMIT Family Medicine; ATTEND Emergency Medicine
DX: I13.0 Hypertensive heart and chronic kidney disease with heart failure and stage 1 through stage 4 chronic kidney disease, or unspecified chronic kidney disease (principal); I50.43 Acute on chronic combined systolic (congestive) and diastolic (congestive) heart failure; J18.9 Pneumonia, unspecified organism; J98.11 Atelectasis; I24.8 Other forms of acute ischemic heart disease; I42.0 Dilated cardiomyopathy; Z96.652 Presence of left artificial knee joint; N18.31 Chronic kidney disease, stage 3a; K21.9 Gastro-esophageal reflux disease without esophagitis; E78.5 Hyperlipidemia, unspecified; E78.00 Pure hypercholesterolemia, unspecified; I25.118 Atherosclerotic heart disease of native coronary artery with other forms of angina pectoris; I08.3 Combined rheumatic disorders of mitral, aortic and tricuspid valves; Z90.11 Acquired absence of right breast and nipple; Z90.710 Acquired absence of both cervix and uterus; Z88.8 Allergy status to other drugs, medicaments and biological substances; Z79.01 Long term (current) use of anticoagulants; Z79.82 Long term (current) use of aspirin; Z79.899 Other long term (current) drug therapy; Z85.3 Personal history of malignant neoplasm of breast; Z86.73 Personal history of transient ischemic attack (TIA), and cerebral infarction without residual deficits; Z92.21 Personal history of antineoplastic chemotherapy
CPT/HCPCS: 36415; 71045; 71046; 80048; 80053; 80061; 82553; 83880; 84145; 84443; 84484; 85025; 87040; 93005; 93306; 94760; 96374; J0456; J0696; J1940; J3490; J7050

== ENCOUNTER 2020-11-04 10:58 | Outpatient (CLI) | payer MEDICARE, BC ==
[~2020-11-04 10:58] MED LIST: Iopamidol 370 76% 100 ML VIAL ONE
== END 2020-11-04 10:59 | disposition home or self-care (01) ==
LOC: BICCT 10:58
PROVIDERS: ATTEND Internal Medicine Critical Care Medicine
DX: R91.1 Solitary pulmonary nodule (principal); J47.9 Bronchiectasis, uncomplicated; J98.4 Other disorders of lung; R91.8 Other nonspecific abnormal finding of lung field
CPT/HCPCS: 71260; 82565; Q9967

== ENCOUNTER 2021-11-03 13:04 | Outpatient (CLI) | payer MEDICARE, BC | END 2021-11-03 13:05 | disposition home or self-care (01) | LOC: RAD 13:04 | PROVIDERS: ATTEND Internal Medicine Critical Care Medicine | DX: R91.1 Solitary pulmonary nodule (principal); I51.7 Cardiomegaly; J98.4 Other disorders of lung | CPT/HCPCS: 71046 ==

== ENCOUNTER 2021-11-19 09:55 | Outpatient (CLI) | payer MEDICARE, BC | END 2021-11-19 09:56 | disposition home or self-care (01) | LOC: BICMAMMO 09:55 | PROVIDERS: ATTEND Internal Medicine | DX: Z12.31 Encounter for screening mammogram for malignant neoplasm of breast (principal); Z90.11 Acquired absence of right breast and nipple; Z98.82 Breast implant status | CPT/HCPCS: 77063; 77067 ==

== ENCOUNTER 2022-12-14 11:59 | Outpatient (CLI) | payer MEDICARE, BC | END 2022-12-14 12:00 | disposition home or self-care (01) | LOC: BICMAMMO 11:59 | PROVIDERS: ATTEND Family Medicine | DX: Z12.31 Encounter for screening mammogram for malignant neoplasm of breast (principal); Z90.11 Acquired absence of right breast and nipple; Z80.3 Family history of malignant neoplasm of breast | CPT/HCPCS: 77063; 77067 ==

== ENCOUNTER 2024-01-24 12:36 | Outpatient (CLI) | payer MEDICARE, BC | END 2024-01-24 12:37 | disposition home or self-care (01) | LOC: BICMAMMO 12:36 | PROVIDERS: ATTEND Nurse Practitioner Family | DX: Z12.31 Encounter for screening mammogram for malignant neoplasm of breast (principal); Z80.3 Family history of malignant neoplasm of breast; Z90.11 Acquired absence of right breast and nipple | CPT/HCPCS: 77063; 77067 ==

== ENCOUNTER 2024-09-10 02:04 | Inpatient (IN) | payer MEDICARE, BC ==
[2024-09-10 02:57] LABS: #Basophils 0.07 10x3/uL (0.0-0.2); #Eosinophils 0.05 10x3/uL (0.0-0.7); #Monocytes 0.81 10x3/uL (0.11-0.59); #Neutrophils 12.80 10x3/uL (1.40-6.50); %Basophils 0.5 % (0.0-1.0); %Eosinophils 0.3 % (0.0-10.0); %Lymphocytes 5.3 % (21.0-51.0); %Monocytes 5.6 % (0.0-10.0); %Neutrophils 87.8 % (42.0-75.0); Hematocrit 45.3 % (36.0-47.0); Hemoglobin 14.3 g/dL (12.0-16.0); Mean Corpuscular Hemoglobin 30.0 pg (27.0-31.0); Mean Corpuscular Volume 95.2 fL (78.0-98.0); Platelet Count 181 10x3/uL (130-400); Red Blood Cell (RBC) Count 4.76 mill/uL (4.20-5.40); White Blood Cell (WBC) Count 14.57 10x3/uL (4.8-10.8)
[2024-09-10 03:19] LABS: ALT (SGPT) 16 U/L (Less than 34); AST (SGOT) 31 U/L (11-34); Albumin 3.6 g/dL (3.1-4.5); Alkaline Phosphatase 108 U/L (40-110); Anion Gap 17 mmol/L (10-20); BUN (Urea Nitrogen) 21 mg/dL (9.8-20.1); Bilirubin, Total 0.8 mg/dL (0.3-1.2); Calc. Creatinine Clearance 0 mL/min (70-130); Calcium 8.8 mg/dL (7.8-10.44); Carbon Dioxide 30 mmol/L (23-31); Chloride 99 mmol/L (98-107); Globulin 3.3 g/dL (2.4-3.5); Glucose 145 mg/dL (83-110); Potassium 3.5 mmol/L (3.5-5.1); Sodium 142 mmol/L (136-145)
[2024-09-10 03:35] LABS: Troponin I 0.047 ng/mL (< 0.028)
[2024-09-10 05:21] LABS: Troponin I 0.068 ng/mL (< 0.028)
[2024-09-10] MEDS ORDERED: cefTRIAXone (ROCEPHIN) 1 GM VIAL ONE (05:51)
[2024-09-10] MEDS ORDERED: Acetaminophen 325 MG TAB PO PRN (06:21)
[2024-09-10] MEDS ORDERED: Ondansetron PF 4 MG/2 ML Vial IVP PRN (06:21)
[2024-09-10] MEDS ORDERED: Calcium Carbonate 500 MG ChewTAB PO PRN (06:21)
[2024-09-10] MEDS ORDERED: Electrolyte Replacement Protocol 1 EACH FS SCH (06:30)
[2024-09-10 06:54] VITALS: BMI 18.3
[2024-09-10] MEDS ORDERED: Albuterol 2.5 MG (3 mL) NEB NEB PRN (08:29)
[2024-09-10] MEDS ORDERED: Guaifenesin DM 100-10/5 ML UDCUP PO PRN (08:29)
[2024-09-10] MEDS ORDERED: Furosemide 20 MG (2 mL) VIAL SLOW IVP SCH (09:00)
[2024-09-10] MEDS ORDERED: Isosorbide Mononitrate 60 MG ER.TAB PO SCH (09:00)
[2024-09-10 09:43] LABS: Troponin I 0.089 ng/mL (< 0.028)
[2024-09-10] MEDS: Famotidine 20 MG TAB PO SCH (11:12)
[2024-09-10] MEDS: Apixaban 2.5 MG TAB PO SCH (11:13)
[2024-09-10] MEDS: Digoxin 0.125 MG TAB PO SCH (11:13)
[2024-09-10] MEDS: Aspirin 81 mg Enteric Coated Tablet PO SCH (11:13)
[2024-09-10] MEDS ORDERED: Artificial Tear Ophth Sol 15 ML BOT EA EYE PRN (11:42)
[2024-09-10] MEDS ORDERED: Iopamidol-370 76% 500 ML MDV (1 ML CHARGE) ONE (12:07)
[2024-09-10 15:57] VITALS: BP 131/58; TEMP 97.6
[2024-09-10] MEDS: Furosemide 40 MG (4 mL) VIAL ONE (17:25)
[2024-09-10] MEDS: Furosemide 40 MG (4 mL) VIAL SLOW IVP SCH ×2 (19:31→19:32)
[2024-09-10] MEDS ORDERED: Pantoprazole 40 MG DR.TAB PO SCH (21:00)
[2024-09-10] MEDS ORDERED: Azithromycin 250 MG TAB PO SCH (21:00)
[2024-09-11] MEDS ORDERED: Furosemide 20 MG (2 mL) VIAL SLOW IVP SCH (06:00)
[2024-09-11] MEDS ORDERED: cefTRIAXone\\ROCEPHIN 1 GM in Sodium Chloride 0.9% 100 ML IVPB SCH (06:00)
[2024-09-11] MEDS ORDERED: predniSONE 20 MG TAB PO SCH (08:00)
[2024-09-11] MEDS ORDERED: Famotidine 20 MG TAB PO SCH (09:00)
[2024-09-11] MEDS ORDERED: Metoprolol Succinate XL 25 MG ER.TAB PO SCH (09:00)
[2024-09-11] MEDS ORDERED: Aspirin 81 mg Enteric Coated Tablet PO SCH (09:00)
[2024-09-11] MEDS ORDERED: valACYclovir 500 MG TAB PO SCH (09:00)
== END 2024-09-10 20:33 | disposition expired | DRG 871 ==
LOC: ERS 02:04 → ERHOLD 05:48 → 2NO 08:40
PROVIDERS: ADMIT Student in an Organized Health Care Education/Training Program; ATTEND Student in an Organized Health Care Education/Training Program
DX: A41.9 Sepsis, unspecified organism (principal); I21.A1 Myocardial infarction type 2; I50.23 Acute on chronic systolic (congestive) heart failure; J18.9 Pneumonia, unspecified organism; J96.01 Acute respiratory failure with hypoxia; B02.30 Zoster ocular disease, unspecified; J44.0 Chronic obstructive pulmonary disease with (acute) lower respiratory infection; J44.1 Chronic obstructive pulmonary disease with (acute) exacerbation; Z66 Do not resuscitate; Z51.5 Encounter for palliative care; R65.20 Severe sepsis without septic shock; I11.0 Hypertensive heart disease with heart failure; E78.00 Pure hypercholesterolemia, unspecified; Z96.652 Presence of left artificial knee joint; K21.9 Gastro-esophageal reflux disease without esophagitis; I48.0 Paroxysmal atrial fibrillation; F03.90 Unspecified dementia, unspecified severity, without behavioral disturbance, psychotic disturbance, mood disturbance, and anxiety; K58.9 Irritable bowel syndrome, unspecified; R79.89 Other specified abnormal findings of blood chemistry; Z98.890 Other specified postprocedural states; Z90.11 Acquired absence of right breast and nipple; Z90.49 Acquired absence of other specified parts of digestive tract; Z90.710 Acquired absence of both cervix and uterus; Z88.8 Allergy status to other drugs, medicaments and biological substances; Z79.899 Other long term (current) drug therapy; Z79.01 Long term (current) use of anticoagulants; Z85.3 Personal history of malignant neoplasm of breast; Z90.722 Acquired absence of ovaries, bilateral; Z88.1 Allergy status to other antibiotic agents; Z88.5 Allergy status to narcotic agent
CPT/HCPCS: 36415; 71045; 71275; 80053; 83605; 83880; 84145; 84484; 85025; 87040; 87081; 87428; 93005; 93306; 93798; 94640; 94760; 96374; J0696; J1940; J2272; J7120; J7620; Q9967